=== PATIENT | female | born 1945 | race Caucasian/White ===

== ENCOUNTER → 2018-04-14 | Outpatient (CLI) | payer MEDICARE ==
[2018-04-14 14:43] VITALS: BP 143/90; PULSE 71; TEMP 98.4; BMI 26.0
--- NOTE | 2018-04-14 14:47 | P.HPBAR ---
Bariatric H&P - History & Physicial H&P Date: 04/14/18 History & Physicial: Visit/CC: band emptying Patient initial contact: Initial weight: 86.183 kg Initial weight in pounds: 190.00 Height: 5 ft 1 in Initial BMI: 35.9 Last weight: Current weight: 62.596 kg Current weight in pounds: 138.00 Current BMI: 26.0 [place] body weight (based on NIH guidelines): 47.627 kg Excess body weight loss: 61.1% The patient is a 72 year-old F who presents for Bariatric Assessment. Patient presents today for LAP-BAND adjustment. She's had issues with dysphagia. She' s not been seen in 4 years. She denies any significant abdominal pain. Past Medical History Past Medical History: GERD/Reflux History of Any Multi-Drug Resistant Organisms: None Reported Past Surgical History: Appendectomy, Back Surgery, Orthopedic Surgery, Tonsillectomy Additional Past Surgical History / Comment(s): right knee meniscus repair Past Anesthesia/Blood Transfusion Reactions: Postoperative Nausea & Vomiting ( PONV) Smoking Status: Never smoker Surgical - Exam Vital Signs Temp Pulse BP 98.4 F 71 143/90 04/14/18 14:25 04/14/18 14:25 04/14/18 14:25 - General well developed, well nourished, no distress - Eyes PERRL - ENT normal pinna - Neck no masses - Respiratory normal expansion - Cardiovascular Rhythm: regular Heart Sounds: abnormal: S1, S2 - Abdomen Abdomen: soft, non tender Bariatric Assessment & Plan Plan: Patient LAP-BAND was adjusted. She has 2.2 mL remove her band. She currently is 0 mL in the band. She'll follow-up in 4 weeks. Patient will also have an esophagram performed today. Bariatric Checklist Checklist: Plan: Checklist: EGD: 1. Hiatal hernia: 2. H. Pylori: HgbA1c: Vitamin D: Smoking: Never smoker Primary care physician referral: Aaron AldrichSupai) Psychiatry clearance: Cardiology clearance: Sleep study: Diet journal: VTE risk score: VTE risk level: Rehab needs at discharge:
--- NOTE | 2018-04-14 16:22 | FL ---
EXAMINATION TYPE: Single contrast FL barium swallow DATE OF EXAM: 04/14/2018 CLINICAL INDICATION: 72-year-old female with dysphagia, epigastric pain that extends up into the neck . Hiatal hernia seen on outside CT. History of lap band. Fluid removed today in clinic. COMPARISON: 12/13/2010 Total Fluoroscopy Time: 1 minute 50 seconds. Total images: 23 FINDINGS: The patient swallowed oral contrast without difficulty or delay. There is smooth contour to the upper half of the esophagus. However, the lower half shows moderate tertiary peristalsis, some tortuosity, and persistent irregular contour. There is incomplete clearance of contrast from the mid and lower esophagus. No sizable hiatal hernia is seen. Lap band remains appropriately positioned without evidence for prolapse. IMPRESSION: 1. Lap band remains appropriate positioned without evidence for prolapse. 2. Moderate tertiary peristalsis along the lower half of the esophagus resulting in incomplete cleara nce of contrast from the esophagus. 3. Persistent contour irregularity of the distal third esophagus. Recommend direct visualization to a ssess for possible erosions and esophagitis. 4. No sizable hiatal hernia.
== END | disposition home or self-care (01) ==
LOC: BARWHC3 13:57
PROVIDERS: ATTEND Surgery
DX: Z46.51 Encounter for fitting and adjustment of gastric lap band (principal); R13.10 Dysphagia, unspecified; K21.9 Gastro-esophageal reflux disease without esophagitis; K22.8 Other specified diseases of esophagus; Z98.84 Bariatric surgery status; Z90.89 Acquired absence of other organs; Z98.890 Other specified postprocedural states
CPT/HCPCS: 74220; G0463; 99212